=== PATIENT | female | born 1945 | race Caucasian/White ===

== ENCOUNTER 2018-02-19 10:44 | Outpatient (CLI) | payer MEDICARE, BC ==
--- NOTE | 2018-02-19 13:31 | RAD ---
THREE VIEWS LEFT SHOULDER: 02/19/2018 HISTORY: Left shoulder pain. Arm pain. COMPARISON: 06/11/2016 FINDINGS: There is prominent degenerative change of the left glenohumeral joint, stable. There is joint space narrowing and inferior osteophyte formation involving the left AC joint, stable as well. There is in completely assessed lower cervical spine postoperative anterior diskectomy and fusion hardware. Ther e is no displaced fracture or evidence of dislocation seen. Incomplete evaluation of the cervical sp ine demonstrates multilevel degenerative change, including multilevel bilateral facet and uncovertebr al osteophyte formation. IMPRESSION: Degenerative change with no acute fracture or dislocation. POS: [facility]
--- NOTE | 2018-02-19 13:33 | RAD ---
PA AND LATERAL VIEWS CHEST: HISTORY: Left shoulder and arm pain. FINDINGS: The heart size is enlarged. There is elevation of the right hemidiaphragm. There is mild pulmonary vascular congestion. No lobar consolidation, pneumothoraces, or large effusions are seen. There are postop changes in the lower cervical spine. POS: [facility]
== END 2018-02-19 10:45 | disposition home or self-care (01) ==
LOC: TBSIIMAG 10:44
PROVIDERS: ATTEND Neurological Surgery
DX: M79.603 Pain in arm, unspecified (principal); M25.512 Pain in left shoulder; M19.012 Primary osteoarthritis, left shoulder
CPT/HCPCS: 71046